=== PATIENT | male | born 1935 | race Caucasian/White ===

== ENCOUNTER 2022-07-30 07:50 | Day surgery (SDC) | payer BC ==
[2022-07-25 10:44] VITALS: BMI 32.3
[2022-07-30] MEDS ORDERED: POVIDONE-IODINE 5% OPHTHALMIC PREP 30 ML SOLUTION ONE (11:17)
[2022-07-30] MEDS ORDERED: TETRACAINE 0.5% OPHTH SOLN 2 ML BOTTLE ONE (11:17)
[2022-07-30] MEDS ORDERED: LIDOCAINE 1%-EPI 1:100,000 30 ML MDV IJ ONE (11:17)
[2022-07-30] MEDS ORDERED: ceFAZolin SODIUM 1 GM VIAL ONE ×2 (11:17→11:39)
[2022-07-30] MEDS ORDERED: ERYTHROMYCIN 0.5% OPHTHALMIC OINTMENT 3.5 GM TUBE ONE (11:33)
[2022-07-30] MEDS ORDERED: MIDAZOLAM HCL 2 MG/2 ML SINGLE DOSE VIAL ONE (11:36)
[2022-07-30] MEDS ORDERED: FENTANYL CITRATE/PF 50 MCG/ML VIAL ONE (11:37)
[2022-07-30] MEDS ORDERED: PROPOFOL 60 ML ONE (11:39)
[2022-07-30] MEDS ORDERED: ONDANSETRON 4 MG/2 ML VIAL ONE (11:40)
[2022-07-30] MEDS ORDERED: DEXAMETHASONE SOD PHOSPHATE 4 MG/1 ML VIAL ONE (11:40)
[2022-07-30] MEDS ORDERED: TOBRA 0.3%/DEXAMETH 0.1% OPHTHALMIC SUSP 2.5 ML BTL ONE (13:16)
[2022-07-30] MEDS ORDERED: oxyCODONE HCL 5 MG TABLET PO PRN (13:23)
[2022-07-30] MEDS ORDERED: ACETAMINOPHEN 500 MG TABLET (FP) PO PRN (13:23)
[2022-07-30] MEDS ORDERED: ONDANSETRON 4 MG/2 ML VIAL IVPUSH PRN (13:23)
[2022-07-30] MEDS ORDERED: LACTATED RINGERS SOLUTION 1,000 ML IV SCH (13:30)
[2022-07-30 14:12] VITALS: RESP 18; TEMP 97.8
[2022-07-30 14:35] VITALS: BP 140/77; PULSE 94
== END 2022-07-30 14:20 | disposition home or self-care (01) ==
LOC: FASU 07:50
PROVIDERS: ATTEND Ophthalmology
PROC: 0W020ZZ Alteration of Face, Open Approach (ICD-10-PCS; 2022-07-30)
PROC: 08SN0ZZ Reposition Right Upper Eyelid, Open Approach (ICD-10-PCS; principal; 2022-07-30 12:02)
DX: H02.421 Myogenic ptosis of right eyelid (principal); H02.834 Dermatochalasis of left upper eyelid
CPT/HCPCS: 88304-TC; 94760